=== PATIENT | female | born 1945 | race Caucasian/White ===

== ENCOUNTER → 2016-06-14 | Outpatient (CLI) | payer MEDICARE ==
[~2016-06-14] MED LIST: AMLO10TA2 PO; GLAUCOMA EYE DROPS; [UNRECOGNIZED DRUG - OTHER]
== END | disposition home or self-care (01) ==
LOC: CFH 14:09
PROVIDERS: ATTEND Licensed Practical Nurse
DX: N60.12 Diffuse cystic mastopathy of left breast (principal)
CPT/HCPCS: 76641; G0204

== ENCOUNTER 2016-08-21 09:54 | Emergency (ER) | payer MEDICARE ==
[~2016-08-21] VITALS: Ht 172.7 cm; Wt 87.9 kg
[2016-08-21 10:10] VITALS: BP 147/81
[2016-08-21] MEDS ORDERED: SODIUM CHLORIDE FLUSH 10ML SYR IVF ONE (11:00)
[2016-08-21] MEDS ORDERED: ACETAMINOPHEN 500 MG TABLET ONE (11:26)
[2016-08-21 11:30] LABS: BLOOD UREA NITROGEN 20 mg/dL (7-18)
[2016-08-21] MEDS ORDERED: ACETAMINOPHEN 500 MG TABLET PO ONE (11:30)
[2016-08-21 11:34] LABS: ASPARTATE AMINO TRANSFERASE 18 U/L (15-37)
== END 2016-08-21 13:08 | disposition home or self-care (01) ==
LOC: ED 11:07
DX: N30.00 Acute cystitis without hematuria (principal); I10 Essential (primary) hypertension
CPT/HCPCS: 36415; 74020; 80053; 81001; 83690; 85025; 87077; 87086; 87186; 99285

== ENCOUNTER 2019-12-08 12:53 | Emergency (ER) | payer MEDICARE ==
[~2019-12-08] VITALS: Ht 170.2 cm; Wt 85.2 kg
[~2019-12-08 12:53] MED LIST changes: -AMLO10TA2 PO; +AMLO10TA8 PO
[2019-12-08 13:16] VITALS: BP 127/74
[2019-12-08] MEDS ORDERED: FAMOTIDINE 20 MG TABLET PO ONE (14:00)
[2019-12-08] MEDS ORDERED: hydrOXyzine 50MG TABLET ONE (14:09)
[2019-12-08] MEDS ORDERED: FAMOTIDINE 20 MG TABLET ONE (14:09)
== END 2019-12-08 14:42 | disposition home or self-care (01) ==
LOC: ED 13:32
DX: L50.0 Allergic urticaria (principal); I10 Essential (primary) hypertension
CPT/HCPCS: 99284; J7512; Q0177